=== PATIENT | male | born 1950 | race Caucasian/White ===

== ENCOUNTER → 2016-08-01 | Outpatient (CLI) | payer MEDICARE ==
[~2016-08-01] MED LIST: ALPR1 PO; ZOCO40TA PO
--- NOTE | 2016-08-08 12:07 | RSPPFT ---
DATE OF PROCEDURE: 08/01/16 COMMENTS: Spirometry shows FVC of 2.9 at 57% of predicted, FEV1 of 1.6 at 46%, FEV1/FVC ratio is decreased. Flow is decreased at FEF 25, FEF 50, FEF 75 and FEF 25-75. There is a good response after bronchodilator treatment. Diffusion capacity is mildly decreased. Flow volume loop indicates an obstructive pattern. IMPRESSION: 1. Mildly severe obstructive lung disease. 2. Good response after bronchodilator treatment. 3. Diffusion capacity is mildly decreased.
== END ==
LOC: HRSP 09:09
PROVIDERS: ATTEND Specialist
DX: R06.00 Dyspnea, unspecified (principal)
CPT/HCPCS: 94060; 94726; 94729